=== PATIENT | female | born 2000 | race Caucasian/White ===

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

== ENCOUNTER → 2019-04-25 18:46 | Outpatient (ROUT) | payer OTHER, SELFPAY ==
[2019-04-25 20:28] LABS: Urine N gonorrhoeae NOT DETECTED
[2019-04-25 20:32] LABS: Urine Chlamydia NOT DETECTED
== END ==
PROVIDERS: Visit Provider Physician Assistant
DX: R30.0 Dysuria (principal)
CPT/HCPCS: 87491; 87591